=== PATIENT | female | born 1955 | race Hispanic/Latino ===

== ENCOUNTER → 2019-12-26 | Day surgery (SDC) | payer OTHER ==
[~2019-12-26] MED LIST: CYCLOBENZAPRINE10 MG PO; ETOMIDATE 2 MG/ML 10 ML INJ IV ONE; FIBER TABS625 MG PO; GABAPENTIN100 MG PO; IBUPROFEN400 MG PO; LIDOCAINE HCL 2% LOCAL INJ 5 ML SDV VIAL INJ ONE; METFORMIN HCL500 MG PO; POTASSIUM PO; PROPOFOL IV EMULSION 10 MG/ML 20 ML VIAL ONE; ZYRTEC-D TABLE1 EACH PO
[2019-12-26 09:09] VITALS: BP 123/84
--- NOTE | 2019-12-26 10:08 | Operative Report ---
DATE OF PROCEDURE: 12/26/2019 SURGEON: Kwadwo Ignacio MD PROCEDURE: Colonoscopy with polypectomy. INDICATIONS FOR COLONOSCOPY: Surveillance colonoscopy, personal history of colon polyps. MEDICATIONS: The patient was done under MAC. Please see anesthesiologist's note. PROCEDURE IN DETAIL: With the patient in left lateral decubitus position, the flexible fiberoptic Olympus colonoscope was inserted into the rectum with ease and advanced all the way to the cecum. It was then withdrawn slowly. Mucosa overlying the cecum, ascending colon, transverse colon, and descending colon appeared to be within normal limits. A minute polyp was hot biopsied from the sigmoid colon and another minute polyp was hot biopsied from the rectum. The scope was then retroflexed into the distal rectum and small internal hemorrhoids were noted, none of which was actively bleeding. The scope was then straightened out. It was subsequently withdrawn. The patient tolerated the procedure well. IMPRESSION: 1. Sigmoid colon polyp, hot biopsied. 2. Rectal polyp, hot biopsied. 3. Internal hemorrhoids, none actively bleeding. PLAN: Follow up histology. Initiate high-fiber, low-fat diet. Initiate high-fiber supplement. The patient might benefit from a followup colonoscopy in 3 to 5 years. Kwadwo Ignacio MD [facility] – [place] /[id number] cc: Renzo Chavarria MD
== END | disposition home or self-care (01) ==
LOC: OR 05:46
PROVIDERS: ATTEND Internal Medicine Gastroenterology
DX: Z09 Encounter for follow-up examination after completed treatment for conditions other than malignant neoplasm (principal); D12.8 Benign neoplasm of rectum; K64.8 Other hemorrhoids; E78.00 Pure hypercholesterolemia, unspecified; R03.0 Elevated blood-pressure reading, without diagnosis of hypertension; E11.9 Type 2 diabetes mellitus without complications; M54.30 Sciatica, unspecified side; M19.90 Unspecified osteoarthritis, unspecified site; I45.10 Unspecified right bundle-branch block; F17.210 Nicotine dependence, cigarettes, uncomplicated; Z88.8 Allergy status to other drugs, medicaments and biological substances; Z88.6 Allergy status to analgesic agent; Z91.041 Radiographic dye allergy status; Z91.040 Latex allergy status; Z01.810 Encounter for preprocedural cardiovascular examination; Z01.812 Encounter for preprocedural laboratory examination; Z11.59 Encounter for screening for other viral diseases; Z79.84 Long term (current) use of oral hypoglycemic drugs; Z68.35 Body mass index [BMI] 35.0-35.9, adult
CPT/HCPCS: 36415; 45384; 82948; 87635; 93005; J2001; J2704

== ENCOUNTER → 2022-09-24 | Day surgery (SDC) | payer MEDICARE, OTHER ==
[2022-09-20 13:49] LABS: BASOPHILS # (AUTO) 0.1 (0.0-0.1); BASOPHILS % 0.6 % (0.0-1.0); EOSINOPHILS # (AUTO) 0.3 (0.0-0.4); EOSINOPHILS % 2.7 % (0.0-6.0); HEMATOCRIT 41.9 % (34.2-44.1); HEMOGLOBIN 13.7 g/dL (12.0-16.0); LYMPHOCYTES # (AUTO) 5.4 (1.0-3.2); LYMPHOCYTES % 46.2 % (18.0-39.1); MEAN CORPUSCULAR HEMOGLOBIN 30.6 pg (28-32); MEAN CORPUSCULAR HGB CONC 32.7 g/dL (31-35); MEAN CORPUSCULAR VOLUME 93.5 fL (81-99); MONOCYTES # (AUTO) 0.9 (0.2-0.8); MONOCYTES % 7.3 % (4.4-11.3); NEUTROPHILS % 42.9 % (38.7-80.0); PLATELET COUNT 309 x10e3/uL (140-360); RED BLOOD COUNT 4.48 x10e6/uL (3.6-5.1); RED CELL DISTRIBUTION WIDTH 13.2 % (11.7-14.4)
[2022-09-20 14:48] LABS: LYMPHOCYTES % (MANUAL) 48 % (19-48); MONOCYTES % (MANUAL) 9 % (3.4-9.0); NEUTROPHILS % (MANUAL) 42 % (40-74); PLATELET ESTIMATE ADEQUATE; PLATELET MORPHOLOGY COMMENT NORMAL; RBC MORPHOLOGY COMMENT NORMAL
[~2022-09-24] MED LIST changes: +DEXAMETHASONE SOD PHOS INJ 4 MG/ML SDV ONE; -ETOMIDATE 2 MG/ML 10 ML INJ IV ONE; +LACTATED RINGER'S 1,000 ML ONE; +METOCLOPRAMIDE HCL 10 MG/2ML VIAL ONE; +ONDANSETRON HCL INJ 2MG/ML 2ML 2 MG/ML VIAL ONE; +POVIDONE IODINE 0.05% 0.05 % ML PO ONE; +VIT C PO
[2022-09-24 17:00] VITALS: BP 116/79
== END | disposition home or self-care (01) ==
LOC: OR 12:19
PROVIDERS: ATTEND Internal Medicine Gastroenterology
DX: Z09 Encounter for follow-up examination after completed treatment for conditions other than malignant neoplasm (principal); D12.2 Benign neoplasm of ascending colon; K64.8 Other hemorrhoids; Z71.3 Dietary counseling and surveillance; F17.210 Nicotine dependence, cigarettes, uncomplicated; Z71.6 Tobacco abuse counseling; Z88.8 Allergy status to other drugs, medicaments and biological substances; Z88.6 Allergy status to analgesic agent; Z91.041 Radiographic dye allergy status; Z01.810 Encounter for preprocedural cardiovascular examination; Z01.812 Encounter for preprocedural laboratory examination; Z79.1 Long term (current) use of non-steroidal anti-inflammatories (NSAID); Z68.34 Body mass index [BMI] 34.0-34.9, adult
CPT/HCPCS: 36415; 45385; 85025; 93005; J1100; J2001; J2405; J2704; J2765; J7121; 45378

== ENCOUNTER 2024-10-25 07:10 | Observation (INO) | payer MEDICARE, OTHER ==
[2024-10-23 13:29] LABS: BASOPHILS # (AUTO) 0.1 (0.0-0.1); BASOPHILS % 0.5 % (0.0-1.0); EOSINOPHILS # (AUTO) 0.2 (0.0-0.4); EOSINOPHILS % 2.2 % (0.0-6.0); HEMATOCRIT 40.6 % (34.2-44.1); HEMOGLOBIN 13.8 g/dL (12.0-16.0); LYMPHOCYTES # (AUTO) 2.8 (1.0-3.2); LYMPHOCYTES % 30.2 % (18.0-39.1); MEAN CORPUSCULAR HEMOGLOBIN 30.6 pg (28-32); MONOCYTES # (AUTO) 0.8 (0.2-0.8); MONOCYTES % 8.1 % (4.4-11.3); NEUTROPHILS # (AUTO) 5.5 (2.1-6.9); NEUTROPHILS % 58.7 % (38.7-80.0); PLATELET COUNT 342 x10e3/uL (140-360); RED BLOOD COUNT 4.51 x10e6/uL (3.6-5.1); RED CELL DISTRIBUTION WIDTH 13.2 % (11.7-14.4); WHITE BLOOD COUNT 9.35 x10e3/uL (4.8-10.8)
[2024-10-23 13:44] LABS: INR 0.95; PROTHROMBIN TIME 13.3 seconds (11.9-14.5)
[2024-10-23 13:45] LABS: PARTIAL THROMBOPLASTIN TIME 27.5 seconds (23.8-35.5)
[2024-10-23 13:52] LABS: ANION GAP 13.2 mmol/L (8-16); CALCIUM 9.2 mg/dL (8.4-10.2); CREATININE, SERUM 0.78 mg/dL (0.57-1.11); POTASSIUM 4.2 mmol/L (3.5-5.1)
[~2024-10-25] VITALS: Ht 152.4 cm; Wt 81.8 kg
[2024-10-25] VITALS (7 sets, daily range): BP systolic 108–126; BP diastolic 50–64; PULSE 61–77; RESP 16–20; TEMP 97.7–98.2; O2SAT 97–98
[~2024-10-25 07:10] MED LIST changes: +ASPIRIN81 MG PO; +BEPREVE10 ML OP; +D3-5000125 MCG; -DEXAMETHASONE SOD PHOS INJ 4 MG/ML SDV ONE; +GARLIC1000 MG PO; +GLIMEPIRIDE2 MG PO; +HYDROXYZINE HCL25 MG PO; +JANUVIA100 MG PO; -LACTATED RINGER'S 1,000 ML ONE; -LIDOCAINE HCL 2% LOCAL INJ 5 ML SDV VIAL INJ ONE; -METOCLOPRAMIDE HCL 10 MG/2ML VIAL ONE; -ONDANSETRON HCL INJ 2MG/ML 2ML 2 MG/ML VIAL ONE; -POVIDONE IODINE 0.05% 0.05 % ML PO ONE; -PROPOFOL IV EMULSION 10 MG/ML 20 ML VIAL ONE; +ULTRAM 50MG50 MG PO; +[UNRECOGNIZED DRUG - OTHER] PO
[2024-10-25] MEDS: LACTATED RINGER'S 1,000 ML ONE (08:41)
[2024-10-25] MEDS ORDERED: FENTANYL CITRATE/PF 100MCG/2 ML INJ ONE (08:59)
[2024-10-25] MEDS ORDERED: ROCURONIUM BROMIDE 1 ML IV ONE (08:59)
[2024-10-25] MEDS ORDERED: PROPOFOL IV EMULSION 10 MG/ML 20 ML VIAL ONE ×2 (08:59→10:54)
[2024-10-25] MEDS ORDERED: LIDOCAINE HCL 2% LOCAL INJ 5 ML SDV VIAL INJ ONE (08:59)
[2024-10-25] MEDS ORDERED: ONDANSETRON HCL INJ 2MG/ML 2ML 2 MG/ML VIAL ONE (10:41)
[2024-10-25] MEDS ORDERED: METOCLOPRAMIDE HCL 10 MG/2ML VIAL ONE (10:41)
[2024-10-25] MEDS ORDERED: DEXAMETHASONE SOD PHOS INJ 4 MG/ML SDV ONE (10:41)
[2024-10-25] MEDS ORDERED: SUGAMMADEX SODIUM 200 MG/2 ML VIAL IV ONE (10:54)
[2024-10-25] MEDS ORDERED: HYDROCODON-ACE1 EA12 PO (11:41)
[2024-10-25] MEDS ORDERED: ACETAMINOPHEN 325 MG TAB PO PRN (11:45)
[2024-10-25] MEDS ORDERED: MAGNESIUM/ALUMINUM/SIMETHICONE 30 ML UDC PO PRN (11:45)
[2024-10-25] MEDS ORDERED: CYCLOBENZAPRINE HCL 10 MG TAB PO SCH (11:45)
[2024-10-25] MEDS ORDERED: CARISOPRODOL 350 MG TAB PO PRN (11:45)
[2024-10-25] MEDS ORDERED: PROMETHAZINE HCL (IM) 25 MG/ML VIAL IM PRN (11:45)
[2024-10-25] MEDS ORDERED: IBUPROFEN 400 MG TAB PO SCH (11:45)
[2024-10-25] MEDS ORDERED: Morphine 10mg syringe 10 MG/ML INJ IM PRN (11:45)
[2024-10-25] MEDS: FENTANYL CITRATE/PF 100MCG/2 ML INJ ONE (12:10)
[2024-10-25] MEDS: OXYCODONE/ACETAMINOPHEN 5-325 1 EACH TABLET PO PRN (12:50)
[2024-10-25] MEDS: LACTATED RINGER'S 1,000 ML IV SCH (15:40)
[2024-10-25] MEDS ORDERED: ZOLPIDEM TARTRATE 5 MG TAB PO PRN (21:00)
[2024-10-26] MEDS: HYDROMORPHONE 2MG/ML IV PRN (03:34)
[2024-10-26] MEDS: ONDANSETRON HCL INJ 2MG/ML 2ML 2 MG/ML VIAL IV PRN (03:34)
[2024-10-26 03:37] VITALS: BP 124/67; PULSE 57; RESP 18; TEMP 98.1; O2SAT 98
[2024-10-26] MEDS: CEFAZOLIN SODIUM 2 GM ONE (07:49)
[2024-10-26 08:10] VITALS: BP 116/41; PULSE 78; RESP 18; TEMP 97.5; O2SAT 100
[2024-10-26] MEDS: CALCIUM POLYCARBOPHIL 625 MG TAB PO SCH (08:33)
[2024-10-26] MEDS: HYDROXYZINE HCL 25 MG TAB PO SCH (08:33)
[2024-10-26] MEDS: GLIMEPIRIDE 2 MG TAB PO SCH (08:34)
[2024-10-26 08:50] VITALS: BP 116/41; PULSE 78; RESP 18; TEMP 97.5; O2SAT 100
== END 2024-10-26 10:08 | disposition home or self-care (01) ==
LOC: OR 07:10 → PACU V 12:36 → MED/SURG 13:47
PROVIDERS: ADMIT Neurological Surgery; ATTEND Neurological Surgery
DX: M48.062 Spinal stenosis, lumbar region with neurogenic claudication (principal); E11.9 Type 2 diabetes mellitus without complications; Z79.84 Long term (current) use of oral hypoglycemic drugs; E78.5 Hyperlipidemia, unspecified; M19.90 Unspecified osteoarthritis, unspecified site; Z01.810 Encounter for preprocedural cardiovascular examination; Z01.812 Encounter for preprocedural laboratory examination; Z01.818 Encounter for other preprocedural examination
CPT/HCPCS: 36415 ×3; 63047; 63048; 71046; 72020; 80048; 82948 ×2; 85025; 85610; 85730; 86850; 86900; 88304; 88311; 93005; G0378 ×2; J0690 ×2; J1100; J1171; J2003; J2405 ×2; J2704; J2765; J3010; J3410; J7121